=== PATIENT | female | born 1985 | race Caucasian/White ===

== ENCOUNTER 2018-08-07 05:28 | Inpatient (IN) | payer OTHER ==
[~2018-08-07] VITALS: Ht 172.7 cm; Wt 3.6 kg
[2018-08-07] MEDS ORDERED: PRENATAL TABLE1 EAC1 PO (08:37)
[2018-08-07] MEDS ORDERED: ALDOMET PO (08:38)
[2018-08-08] MEDS ORDERED: METHYLDOPA250 MG PO (16:40)
[2018-08-10] MEDS ORDERED: LABETALOL HCL100 MG PO (10:53)
[2018-08-10] MEDS ORDERED: SENNA8.6 MG PO (10:53)
[2018-08-10] MEDS ORDERED: IBUPROFEN800 MG PO (10:53)
[2018-08-10] MEDS ORDERED: GAS RELIEF125 MG PO (10:53)
== END 2018-08-10 12:24 | disposition home or self-care (01) | DRG 786 ==
LOC: OB/GYN 05:28 → LDR 05:28 → OB/GYN 19:21
PROVIDERS: ADMIT Obstetrics & Gynecology
PROC: 4A0HXFZ Measurement of Products of Conception, Cardiac Rhythm, External Approach (ICD-10-PCS; 2018-08-07)
PROC: 10D00Z1 Extraction of Products of Conception, Low, Open Approach (ICD-10-PCS; principal; 2018-08-07 17:00)
DX: O82 Encounter for cesarean delivery without indication (principal); O11.3 Pre-existing hypertension with pre-eclampsia, third trimester; O61.8 Other failed induction of labor; Z3A.38 38 weeks gestation of pregnancy; Z37.0 Single live birth